=== PATIENT | female | born 1960 | race Hispanic/Latino ===

== ENCOUNTER 2017-11-27 15:03 | Emergency (ER) | payer SELFPAY ==
[~2017-11-27 15:03] MED LIST: MELO-106 PO; METF10004 PO; NPH,100V11 SQ; TRAM50TA4 PO
[2017-11-27] MEDS ORDERED: CEFTRIAXONE SODIUM 2 GM VIAL ONE (15:17)
[2017-11-27] MEDS ORDERED: SODIUM CHLORIDE 0.9% 1000ML 1,000 ML IV ONE (15:17)
[2017-11-27] MEDS ORDERED: ACETAMINOPHEN EXTRA STRENGTH 500 MG TABLET ONE (15:18)
[2017-11-27 15:32] LABS: BASOPHILS % (AUTO) 0.7 % (0.0-5.0); EOSINOPHILS % (AUTO) 0.3 % (0.0-8.0); HEMATOCRIT 40.6 % (36-48); LYMPHOCYTES % (AUTO) 11.8 % (21.0-51.0); MEAN CORPUSCULAR HEMOGLOBIN 28.3 pg (27.0-33.0); MEAN CORPUSCULAR HGB CONC 32.8 g/dL (32.0-36.0); MEAN CORPUSCULAR VOLUME 86.3 fL (79-99); MONOCYTES % (AUTO) 9.3 % (3.0-13.0); NEUTROPHILS % (AUTO) 77.9 % (40.0-77.0); PLATELET COUNT (AUTO) 386 K/uL (130-400); RED BLOOD CELL COUNT(AUTO) 4.71 MIL/uL (4.00-5.50); RED CELL DISTRIBUTION WIDTH 14.7 % (11.0-15.5); WHITE BLOOD COUNT (AUTO) 13.5 K/uL (4.8-10.8)
[2017-11-27 15:48] LABS: INR 1.01 (0.85-1.15); PARTIAL THROMBOPLASTIN TIME 28.9 SEC (26.3-35.5); PROTHROMBIN TIME 10.6 SEC (9.6-11.6)
[2017-11-27 15:57] LABS: CARBON DIOXIDE 27 mmol/L (21-32); CHLORIDE 97 mmol/L (101-111); CREATININE 0.7 mg/dL (0.5-1.5); GLOMERULAR FILTR. RATE CALC 92 mL/min (>60); GLUCOSE,RANDOM 184 mg/dL (70-105); POTASSIUM 4.1 mmol/L (3.5-5.1); SODIUM SERUM 133 mmol/L (136-145); UREA NITROGEN, BLOOD 12 mg/dL (7-18)
[2017-11-27 16:23] LABS: ALANINE AMINOTRANSFERASE 24 U/L (12-78); ALBUMIN 3.5 g/dL (3.5-5.0); ASPARTATE AMINOTRANSFERASE 21 U/L (10-37); BILIRUBIN,TOTAL 0.3 mg/dL (0.2-1.0); CREATINE KINASE MB < 0.5 ng/mL (0.5-3.6); CREATINE KINASE, TOTAL 140 U/L (21-232); MYOGLOBIN 49 ng/mL (10-92); TOTAL PROTEIN, SERUM 8.6 g/dL (6.0-8.3); TROPONIN I < 0.04 ng/mL (0.00-0.06)
== END 2017-11-27 17:50 | disposition home or self-care (01) ==
LOC: EDH 15:03
DX: E86.0 Dehydration (principal); J09.X2 Influenza due to identified novel influenza A virus with other respiratory manifestations; E11.9 Type 2 diabetes mellitus without complications; E78.5 Hyperlipidemia, unspecified; I10 Essential (primary) hypertension
CPT/HCPCS: 36415; 71046; 80053; 82550; 82553; 83605; 83874; 84484; 85025; 85610; 85730; 87040 ×2; 87804 ×2; 87880; 93005; 96361; 96374; 99285; J0696; J7030

== ENCOUNTER 2017-12-20 12:17 | Inpatient (IN) | payer SELFPAY ==
[~2017-12-20] VITALS: Ht 154.9 cm; Wt 89.1 kg
[2017-12-20] MEDS ORDERED: ACETAMINOPHEN ELIXIR 650 MG/20.3 ML UDCUP ONE (13:25)
[2017-12-20 14:03] LABS: RAPID GROUP A STREP NEGATIVE (NEGATIVE)
[2017-12-20] MEDS ORDERED: LEVOFLOXACIN 750 MG/D5W 150 ML 150 ML ONE (14:38)
[2017-12-20] MEDS ORDERED: SODIUM CHLORIDE 0.9% 1000ML 1,000 ML IV ONE (14:38)
[2017-12-20 15:00] LABS: HEMATOCRIT 37.9 % (36-48); MEAN CORPUSCULAR HEMOGLOBIN 28.9 pg (27.0-33.0); MEAN CORPUSCULAR HGB CONC 33.9 g/dL (32.0-36.0); MEAN CORPUSCULAR VOLUME 85.4 fL (79-99); PLATELET COUNT (AUTO) 380 K/uL (130-400); RED BLOOD CELL COUNT(AUTO) 4.44 MIL/uL (4.00-5.50); RED CELL DISTRIBUTION WIDTH 14.7 % (11.0-15.5)
[2017-12-20 15:08] LABS: WHITE BLOOD COUNT (AUTO) 31.1 K/uL (4.8-10.8)
[2017-12-20 15:22] LABS: CREATININE 1.2 mg/dL (0.5-1.5); POTASSIUM 3.4 mmol/L (3.5-5.1)
[2017-12-20 15:26] LABS: ALBUMIN 3.3 g/dL (3.5-5.0); BILIRUBIN,TOTAL 0.4 mg/dL (0.2-1.0); TOTAL PROTEIN, SERUM 7.7 g/dL (6.0-8.3)
[2017-12-20 15:43] LABS: BAND NEUTROPHILS % (MANUAL) 20 % (0-2); LYMPHOCYTES % (MANUAL) 5 % (22-44); MAN.DIFF COMMENT-IMPRESSION MANUAL DIFFERENTIAL; MONOCYTES % (MANUAL) 3 % (2-9); SEGMENTED NEUTROPHILS % 72 % (40-70)
[2017-12-20] MEDS ORDERED: SODIUM CHLORIDE 0.9% 1000ML 2,000 ML IV ONE (16:46)
[2017-12-20] MEDS ORDERED: MEROPENEM 1 GM VIAL ONE (17:08)
[2017-12-20] MEDS ORDERED: LACTULOSE 20 GM/30 ML UDCUP PO PRN (18:00)
[2017-12-20] MEDS: AZITHROMYCIN 500MG+NS 250ML 250 ML IV SCH (18:00)
[2017-12-20] MEDS ORDERED: ACETAMINOPHEN 325 MG TAB PO PRN (18:00)
[2017-12-20] MEDS ORDERED: GUAIFENESIN-DM 200/20 MG 10 ML PO PRN (18:00)
[2017-12-20] MEDS ORDERED: ZOLPIDEM TARTRATE 5 MG TAB PO PRN (18:00)
[2017-12-20] MEDS ORDERED: CEFTRIAXONE 1GM/D5W 50ML 50 ML IV SCH (18:00)
[2017-12-20] MEDS ORDERED: CEFTRIAXONE SODIUM 1 GM IVP SCH (18:15)
[2017-12-20] MEDS ORDERED: AZITHROMYCIN 500MG+NS 250ML 250 ML IV ONE (19:36)
[2017-12-20] MEDS ORDERED: CEFTRIAXONE SODIUM 1 GM ONE (19:36)
[2017-12-20 19:46] LABS: APPEARANCE,URINE SL CLOUDY (CLEAR); BILIRUBIN,URINE NEGATIVE (NEGATIVE); COLOR,URINE YELLOW (YELLOW); GLUCOSE, URINE (UA) NEGATIVE (NEGATIVE); KETONES,URINE NEGATIVE (NEGATIVE); LEUKOCYTE ESTERASE ,URINE LARGE (NEGATIVE); NITRATE,URINE NEGATIVE (NEGATIVE); OCCULT BLOOD,URINE MODERATE (NEGATIVE); PH,URINE 7.5 (5.0-8.0); PROTEIN,URINE NEGATIVE (NEGATIVE); UROBILINOGEN,URINE 0.2 mg/dL (0.2-1.0)
[2017-12-20] MEDS ORDERED: ACETAMINOPHEN-CODEINE 300/30MG TAB ONE (19:54)
[2017-12-20 20:05] LABS: WBC,URINE 26-50 /HPF (0-1)
[2017-12-20 20:09] LABS: BACTERIA,URINE Rare /HPF (None Seen); SQUAMOUS EPITHELIAL CELL,UR Rare /LPF (0-2); TRANSITIONAL EPI CELLS,URINE Few /LPF (None Seen)
[2017-12-20] MEDS ORDERED: PANTOPRAZOLE SODIUM 40 MG TABLET.DR PO ONE (20:47)
[2017-12-20] MEDS ORDERED: HYDRALAZINE HCL 20 MG/ML VIAL IM PRN (23:30)
[2017-12-21] MEDS ORDERED: ACETAMINOPHEN 325 MG TAB PO PRN
[2017-12-21] MEDS ORDERED: ACETAMINOPHEN EXTRA STRENGTH 500 MG TABLET ONE ×2 (00:22→12:20)
[2017-12-21] MEDS: ENOXAPARIN SODIUM 40 MG/0.4 ML SYRINGE SQ SCH (09:00)
[2017-12-21] MEDS: PANTOPRAZOLE SODIUM 40 MG TABLET.DR PO SCH (09:00)
[2017-12-21] MEDS ORDERED: ENOXAPARIN SODIUM 40 MG/0.4 ML SYRINGE SQ ONE (09:03)
[2017-12-21] MEDS ORDERED: PANTOPRAZOLE SODIUM 40 MG TABLET.DR PO ONE (09:04)
[2017-12-21] MEDS ORDERED: SODIUM CHLORIDE 0.9% 1000ML 1,000 ML IV ONE (12:08)
[2017-12-21] MEDS ORDERED: ONDANSETRON HCL 4 MG/2 ML VIAL ONE (12:20)
[2017-12-21 12:40] VITALS: BP 128/57
[2017-12-21] MEDS: SODIUM CHLORIDE 0.9% 1000ML 1,000 ML IV SCH ×2 (13:00→18:13)
[2017-12-21 13:51] VITALS: BP 128/57
[2017-12-21 16:00] VITALS: BP 101/51
[2017-12-21] MEDS: WATER FOR INJECTION,STERILE 20 ML VIAL IJ SCH (16:00)
[2017-12-21] MEDS ORDERED: PHARMACY COMMUNICATION MISC SCH (16:15)
[2017-12-21] MEDS: CEFEPIME HCL 2 GM VIAL IVP SCH (16:54)
[2017-12-21] MEDS: AZITHROMYCIN 500MG+NS 250ML 250 ML IV SCH (18:13)
[2017-12-21 19:00] VITALS: BP 129/61
[2017-12-21] MEDS ORDERED: ATOR40TA69 PO (20:11)
[2017-12-21] MEDS ORDERED: METF850T2 PO (20:11)
[2017-12-21] MEDS ORDERED: HUMALOG SQ (20:11)
[2017-12-21] MEDS ORDERED: ASPI-1012 PO (20:11)
[2017-12-21] MEDS ORDERED: HUMALOG 70/30 SQ (20:11)
[2017-12-21] MEDS ORDERED: LISI-617 PO (20:11)
[2017-12-21] MEDS ORDERED: CHOL500051 PO (20:11)
[2017-12-21] MEDS: ACETAMINOPHEN-CODEINE 300/30MG TAB PO PRN (21:20)
[2017-12-21] MEDS: ONDANSETRON HCL 4 MG/2 ML VIAL IVP PRN (21:21)
[2017-12-22] VITALS (7 sets, daily range): BP systolic 98–118; BP diastolic 51–68
[2017-12-22] MEDS: CEFEPIME HCL 2 GM VIAL IVP SCH ×3 (00:06→16:28)
[2017-12-22] MEDS: WATER FOR INJECTION,STERILE 20 ML VIAL IJ SCH ×3 (08:00→16:28)
[2017-12-22] MEDS: PANTOPRAZOLE SODIUM 40 MG TABLET.DR PO SCH (10:13)
[2017-12-22] MEDS ORDERED: CHOLECALCIFEROL 5000 UNIT PO SCH (10:41)
[2017-12-22 11:46] LABS: BASOPHILS % (AUTO) 0.8 % (0.0-5.0); EOSINOPHILS % (AUTO) 1.6 % (0.0-8.0); HEMATOCRIT 34.5 % (36-48); LYMPHOCYTES % (AUTO) 25.5 % (21.0-51.0); MEAN CORPUSCULAR HEMOGLOBIN 28.8 pg (27.0-33.0); MEAN CORPUSCULAR HGB CONC 33.4 g/dL (32.0-36.0); MEAN CORPUSCULAR VOLUME 86.4 fL (79-99); MONOCYTES % (AUTO) 9.2 % (3.0-13.0); NEUTROPHILS % (AUTO) 62.9 % (40.0-77.0); PLATELET COUNT (AUTO) 354 K/uL (130-400); RED BLOOD CELL COUNT(AUTO) 3.99 MIL/uL (4.00-5.50); RED CELL DISTRIBUTION WIDTH 15.1 % (11.0-15.5); WHITE BLOOD COUNT (AUTO) 15.3 K/uL (4.8-10.8)
[2017-12-22 11:59] LABS: CREATININE 0.8 mg/dL (0.5-1.5); POTASSIUM 3.6 mmol/L (3.5-5.1)
[2017-12-22] MEDS: TAMSULOSIN HCL 0.4 MG CAP.ER.24H PO SCH (12:56)
[2017-12-22] MEDS: METFORMIN HCL 850 MG TABLET PO SCH ×2 (12:56→16:29)
[2017-12-22] MEDS: ACETAMINOPHEN-CODEINE 300/30MG TAB PO PRN (12:57)
[2017-12-22] MEDS: SODIUM CHLORIDE 0.9% 1000ML 1,000 ML IV SCH (12:58)
[2017-12-22] MEDS: ENOXAPARIN SODIUM 40 MG/0.4 ML SYRINGE SQ SCH (13:00)
[2017-12-22] MEDS: AZITHROMYCIN 500MG+NS 250ML 250 ML IV SCH (16:29)
[2017-12-22] MEDS: MORPHINE SULFATE 2 MG/ML 1ML SYG IV PRN (16:44)
[2017-12-22] MEDS: INSULIN LISPRO 100 UNIT/ML 3ML SQ SCH (18:00)
[2017-12-23] MEDS: CEFEPIME HCL 2 GM VIAL IVP SCH ×3 (00:36→19:08)
[2017-12-23] MEDS: WATER FOR INJECTION,STERILE 20 ML VIAL IJ SCH ×2 (00:36→09:16)
[2017-12-23] MEDS: MORPHINE SULFATE 2 MG/ML 1ML SYG IV PRN ×2 (01:44→21:34)
[2017-12-23] MEDS: ONDANSETRON HCL 4 MG/2 ML VIAL IVP PRN (01:47)
[2017-12-23 03:20] VITALS: BP 128/72
[2017-12-23] MEDS: SODIUM CHLORIDE 0.9% 1000ML 1,000 ML IV SCH ×2 (05:43→19:07)
[2017-12-23] MEDS: INSULIN HUMULIN 70/30 100 UNIT/ML 3ML SQ SCH (06:58)
[2017-12-23 08:55] VITALS: BP 130/72
[2017-12-23] MEDS: LISINOPRIL 5 MG TABLET PO SCH (09:14)
[2017-12-23] MEDS: METFORMIN HCL 850 MG TABLET PO SCH ×4 (09:14→19:09)
[2017-12-23] MEDS: ATORVASTATIN CALCIUM 40 MG TABLET PO SCH (09:14)
[2017-12-23] MEDS: ASPIRIN 325 MG TABLET PO SCH (09:14)
[2017-12-23] MEDS: PANTOPRAZOLE SODIUM 40 MG TABLET.DR PO SCH (09:15)
[2017-12-23] MEDS: TAMSULOSIN HCL 0.4 MG CAP.ER.24H PO SCH (09:15)
[2017-12-23] MEDS: ENOXAPARIN SODIUM 40 MG/0.4 ML SYRINGE SQ SCH (09:16)
[2017-12-23 12:02] VITALS: BP 121/69
[2017-12-23 15:43] VITALS: BP 96/53
[2017-12-23] MEDS: INSULIN LISPRO 100 UNIT/ML 3ML SQ SCH ×2 (18:00→19:12)
[2017-12-23 19:00] VITALS: BP 122/65
[2017-12-23 23:49] VITALS: BP 115/56
[2017-12-24] MEDS: CEFEPIME HCL 2 GM VIAL IVP SCH ×3 (00:43→18:14)
[2017-12-24] MEDS: MORPHINE SULFATE 2 MG/ML 1ML SYG IV PRN (01:43)
[2017-12-24 03:30] VITALS: BP 124/59
[2017-12-24] MEDS: SODIUM CHLORIDE 0.9% 1000ML 1,000 ML IV SCH ×2 (05:37→21:00)
[2017-12-24 05:53] LABS: HEMATOCRIT 32.4 % (36-48); LYMPHOCYTES % (AUTO) 31.8 % (21.0-51.0); MEAN CORPUSCULAR HEMOGLOBIN 28.7 pg (27.0-33.0); MEAN CORPUSCULAR HGB CONC 33.8 g/dL (32.0-36.0); MONOCYTES % (AUTO) 12.4 % (3.0-13.0); NEUTROPHILS % (AUTO) 52.8 % (40.0-77.0); NUCLEATED RED BLOOD CELLS 0.1 % (0.0-0.19); PLATELET COUNT (AUTO) 376 K/uL (130-400); RED BLOOD CELL COUNT(AUTO) 3.81 MIL/uL (4.00-5.50); RED CELL DISTRIBUTION WIDTH 14.5 % (11.0-15.5); WHITE BLOOD COUNT (AUTO) 12.7 K/uL (4.8-10.8)
[2017-12-24 05:58] LABS: CREATININE 0.6 mg/dL (0.5-1.5); POTASSIUM 3.5 mmol/L (3.5-5.1)
[2017-12-24] MEDS: INSULIN HUMULIN 70/30 100 UNIT/ML 3ML SQ SCH (07:09)
[2017-12-24 07:28] VITALS: BP 128/71
[2017-12-24] MEDS: WATER FOR INJECTION,STERILE 20 ML VIAL IJ SCH ×3 (08:00→16:00)
[2017-12-24] MEDS: METFORMIN HCL 850 MG TABLET PO SCH ×3 (09:01→16:38)
[2017-12-24] MEDS: ASPIRIN 325 MG TABLET PO SCH (09:02)
[2017-12-24] MEDS: TAMSULOSIN HCL 0.4 MG CAP.ER.24H PO SCH (09:02)
[2017-12-24] MEDS: LISINOPRIL 5 MG TABLET PO SCH (09:02)
[2017-12-24] MEDS: PANTOPRAZOLE SODIUM 40 MG TABLET.DR PO SCH (09:02)
[2017-12-24] MEDS: ATORVASTATIN CALCIUM 40 MG TABLET PO SCH (09:02)
[2017-12-24] MEDS: ENOXAPARIN SODIUM 40 MG/0.4 ML SYRINGE SQ SCH (09:02)
[2017-12-24 11:20] VITALS: BP 114/70
[2017-12-24 16:10] VITALS: BP 119/67
[2017-12-24] MEDS: INSULIN LISPRO 100 UNIT/ML 3ML SQ SCH (16:38)
[2017-12-24 19:00] VITALS: BP 129/68
[2017-12-24] MEDS: ACETAMINOPHEN-CODEINE 300/30MG TAB PO PRN (20:53)
[2017-12-24 23:00] VITALS: BP 105/56
[2017-12-25] MEDS: CEFEPIME HCL 2 GM VIAL IVP SCH ×3 (00:45→18:37)
[2017-12-25 03:00] VITALS: BP 128/74
[2017-12-25] MEDS: INSULIN HUMULIN 70/30 100 UNIT/ML 3ML SQ SCH (07:30)
[2017-12-25 08:00] VITALS: BP 145/70
[2017-12-25] MEDS: WATER FOR INJECTION,STERILE 20 ML VIAL IJ SCH ×3 (08:00→16:00)
[2017-12-25] MEDS: METFORMIN HCL 850 MG TABLET PO SCH ×3 (08:00→18:36)
[2017-12-25] MEDS: ATORVASTATIN CALCIUM 40 MG TABLET PO SCH (09:51)
[2017-12-25] MEDS: PANTOPRAZOLE SODIUM 40 MG TABLET.DR PO SCH (09:51)
[2017-12-25] MEDS: ASPIRIN 325 MG TABLET PO SCH (09:51)
[2017-12-25] MEDS: LISINOPRIL 5 MG TABLET PO SCH (09:51)
[2017-12-25] MEDS: TAMSULOSIN HCL 0.4 MG CAP.ER.24H PO SCH (09:52)
[2017-12-25] MEDS: ENOXAPARIN SODIUM 40 MG/0.4 ML SYRINGE SQ SCH (09:53)
[2017-12-25 11:00] VITALS: BP 126/55
[2017-12-25 16:00] VITALS: BP 125/44
[2017-12-25] MEDS: INSULIN LISPRO 100 UNIT/ML 3ML SQ SCH (18:00)
[2017-12-25 19:20] VITALS: BP 123/52
[2017-12-25] MEDS: ACETAMINOPHEN-CODEINE 300/30MG TAB PO PRN (20:09)
[2017-12-25 23:20] VITALS: BP 121/53
[2017-12-26] MEDS ORDERED: CEFEPIME HCL 1 GM VIAL ONE (00:13)
[2017-12-26] MEDS ORDERED: WATER FOR INJECTION,STERILE 20 ML VIAL ONE (00:13)
[2017-12-26] MEDS: WATER FOR INJECTION,STERILE 20 ML VIAL IJ SCH ×3 (00:25→17:29)
[2017-12-26 03:20] VITALS: BP 102/62
[2017-12-26] MEDS: ACETAMINOPHEN-CODEINE 300/30MG TAB PO PRN ×2 (03:59→11:22)
[2017-12-26 04:00] LABS: HEMATOCRIT 33.1 % (36-48); MEAN CORPUSCULAR HEMOGLOBIN 28.8 pg (27.0-33.0); MEAN CORPUSCULAR HGB CONC 33.9 g/dL (32.0-36.0); PLATELET COUNT (AUTO) 425 K/uL (130-400); RED BLOOD CELL COUNT(AUTO) 3.89 MIL/uL (4.00-5.50); RED CELL DISTRIBUTION WIDTH 14.5 % (11.0-15.5); WHITE BLOOD COUNT (AUTO) 14.3 K/uL (4.8-10.8)
[2017-12-26 04:10] LABS: ALBUMIN 2.8 g/dL (3.5-5.0); BILIRUBIN,TOTAL 0.3 mg/dL (0.2-1.0); CREATININE 0.7 mg/dL (0.5-1.5); MAGNESIUM 1.6 mg/dL (1.80-2.40); POTASSIUM 3.8 mmol/L (3.5-5.1); TOTAL PROTEIN, SERUM 7.5 g/dL (6.0-8.3)
[2017-12-26] MEDS: INSULIN HUMULIN 70/30 100 UNIT/ML 3ML SQ SCH (06:50)
[2017-12-26 08:00] VITALS: BP_SYST 105; BP_SYST 178; BP_DIAS 62; BP_DIAS 83
[2017-12-26 11:00] VITALS: BP 104/46
[2017-12-26] MEDS: ENOXAPARIN SODIUM 40 MG/0.4 ML SYRINGE SQ SCH (11:18)
[2017-12-26] MEDS: MAGNESIUM 2GM PREMIX 50ML 50 ML IV SCH (11:18)
[2017-12-26] MEDS: PYRAZINAMIDE 500 MG TABLET PO SCH (11:19)
[2017-12-26] MEDS: LISINOPRIL 5 MG TABLET PO SCH (11:19)
[2017-12-26] MEDS: CEFEPIME HCL 2 GM VIAL IVP SCH ×3 (11:19→17:29)
[2017-12-26] MEDS: ETHAMBUTOL HCL 400 MG TABLET PO SCH (11:20)
[2017-12-26] MEDS: PANTOPRAZOLE SODIUM 40 MG TABLET.DR PO SCH (11:20)
[2017-12-26] MEDS: METFORMIN HCL 850 MG TABLET PO SCH ×3 (11:20→16:18)
[2017-12-26] MEDS: RIFAMPIN 300 MG CAPSULE PO SCH (11:20)
[2017-12-26] MEDS: ISONIAZID 300 MG TAB PO SCH (11:21)
[2017-12-26] MEDS: PYRIDOXINE HCL 50 MG TABLET PO SCH (11:21)
[2017-12-26] MEDS: ASPIRIN 325 MG TABLET PO SCH (11:21)
[2017-12-26] MEDS: TAMSULOSIN HCL 0.4 MG CAP.ER.24H PO SCH (11:22)
[2017-12-26] MEDS: ATORVASTATIN CALCIUM 40 MG TABLET PO SCH (11:22)
[2017-12-26] MEDS: ONDANSETRON HCL 4 MG/2 ML VIAL IVP PRN (13:11)
[2017-12-26 16:00] VITALS: BP 100/59
[2017-12-26] MEDS: INSULIN LISPRO 100 UNIT/ML 3ML SQ SCH (16:18)
[2017-12-26 19:55] VITALS: BP 108/61
[2017-12-26 23:44] VITALS: BP 106/61
[2017-12-27] MEDS: CEFEPIME HCL 2 GM VIAL IVP SCH ×4 (00:59→23:55)
[2017-12-27] MEDS: ACETAMINOPHEN-CODEINE 300/30MG TAB PO PRN (01:26)
[2017-12-27 04:00] VITALS: BP 101/57
[2017-12-27 04:56] LABS: BASOPHILS % (AUTO) 0.6 % (0.0-5.0); EOSINOPHILS % (AUTO) 2.8 % (0.0-8.0); HEMATOCRIT 33.2 % (36-48); LYMPHOCYTES % (AUTO) 28.5 % (21.0-51.0); MEAN CORPUSCULAR HEMOGLOBIN 29.7 pg (27.0-33.0); MEAN CORPUSCULAR HGB CONC 34.8 g/dL (32.0-36.0); MEAN CORPUSCULAR VOLUME 85.4 fL (79-99); MONOCYTES % (AUTO) 8.2 % (3.0-13.0); NEUTROPHILS % (AUTO) 59.9 % (40.0-77.0); NUCLEATED RED BLOOD CELLS 0.1 % (0.0-0.19); PLATELET COUNT (AUTO) 445 K/uL (130-400); RED BLOOD CELL COUNT(AUTO) 3.89 MIL/uL (4.00-5.50); RED CELL DISTRIBUTION WIDTH 14.4 % (11.0-15.5); WHITE BLOOD COUNT (AUTO) 14.8 K/uL (4.8-10.8)
[2017-12-27 05:16] LABS: CREATININE 0.7 mg/dL (0.5-1.5); POTASSIUM 4.1 mmol/L (3.5-5.1)
[2017-12-27] MEDS: INSULIN HUMULIN 70/30 100 UNIT/ML 3ML SQ SCH (06:42)
[2017-12-27 08:00] VITALS: BP 98/67
[2017-12-27] MEDS: METFORMIN HCL 850 MG TABLET PO SCH ×3 (08:00→15:40)
[2017-12-27] MEDS: LISINOPRIL 5 MG TABLET PO SCH (09:00)
[2017-12-27] MEDS: MAGNESIUM 2GM PREMIX 50ML 50 ML IV SCH (10:15)
[2017-12-27] MEDS: PYRIDOXINE HCL 50 MG TABLET PO SCH (10:49)
[2017-12-27] MEDS: ISONIAZID 300 MG TAB PO SCH (10:49)
[2017-12-27] MEDS: RIFAMPIN 300 MG CAPSULE PO SCH (10:49)
[2017-12-27] MEDS: ATORVASTATIN CALCIUM 40 MG TABLET PO SCH (10:49)
[2017-12-27] MEDS: PANTOPRAZOLE SODIUM 40 MG TABLET.DR PO SCH (10:49)
[2017-12-27] MEDS: ETHAMBUTOL HCL 400 MG TABLET PO SCH (10:49)
[2017-12-27] MEDS: TAMSULOSIN HCL 0.4 MG CAP.ER.24H PO SCH (10:49)
[2017-12-27] MEDS: ENOXAPARIN SODIUM 40 MG/0.4 ML SYRINGE SQ SCH (10:49)
[2017-12-27] MEDS: PYRAZINAMIDE 500 MG TABLET PO SCH (10:50)
[2017-12-27] MEDS: ASPIRIN 325 MG TABLET PO SCH (10:50)
[2017-12-27] MEDS: WATER FOR INJECTION,STERILE 20 ML VIAL IJ SCH ×3 (10:59→16:01)
[2017-12-27 12:04] VITALS: BP 101/68
[2017-12-27] MEDS: INSULIN LISPRO 100 UNIT/ML 3ML SQ SCH (15:40)
[2017-12-27 15:47] VITALS: BP 122/61
[2017-12-27 19:44] VITALS: BP 116/63
[2017-12-27 23:29] VITALS: BP 126/68
[2017-12-28 04:00] VITALS: BP 129/70
[2017-12-28] MEDS: INSULIN HUMULIN 70/30 100 UNIT/ML 3ML SQ SCH (06:38)
[2017-12-28 07:37] VITALS: BP 111/61
[2017-12-28] MEDS: METFORMIN HCL 850 MG TABLET PO SCH ×3 (08:00→16:41)
[2017-12-28] MEDS: MAGNESIUM 2GM PREMIX 50ML 50 ML IV SCH (10:15)
[2017-12-28] MEDS: CEFEPIME HCL 2 GM VIAL IVP SCH ×2 (10:21→16:47)
[2017-12-28] MEDS: WATER FOR INJECTION,STERILE 20 ML VIAL IJ SCH ×2 (10:22→16:47)
[2017-12-28] MEDS: ISONIAZID 300 MG TAB PO SCH (10:22)
[2017-12-28] MEDS: ETHAMBUTOL HCL 400 MG TABLET PO SCH (10:22)
[2017-12-28] MEDS: PYRIDOXINE HCL 50 MG TABLET PO SCH (10:22)
[2017-12-28] MEDS: PANTOPRAZOLE SODIUM 40 MG TABLET.DR PO SCH (10:22)
[2017-12-28] MEDS: RIFAMPIN 300 MG CAPSULE PO SCH (10:22)
[2017-12-28] MEDS: TAMSULOSIN HCL 0.4 MG CAP.ER.24H PO SCH (10:22)
[2017-12-28] MEDS: ASPIRIN 325 MG TABLET PO SCH (10:22)
[2017-12-28] MEDS: ACETAMINOPHEN-CODEINE 300/30MG TAB PO PRN (10:23)
[2017-12-28] MEDS: PYRAZINAMIDE 500 MG TABLET PO SCH (10:23)
[2017-12-28] MEDS: LISINOPRIL 5 MG TABLET PO SCH (10:23)
[2017-12-28] MEDS: ATORVASTATIN CALCIUM 40 MG TABLET PO SCH (10:23)
[2017-12-28] MEDS: ENOXAPARIN SODIUM 40 MG/0.4 ML SYRINGE SQ SCH (10:24)
[2017-12-28 11:00] VITALS: BP 110/65
[2017-12-28] MEDS ORDERED: ETHA400T8 PO (13:41)
[2017-12-28] MEDS ORDERED: PYRI50TA15 PO (13:41)
[2017-12-28] MEDS ORDERED: RIFA300C2 PO (13:41)
[2017-12-28] MEDS ORDERED: PYRA500T15 PO (13:41)
[2017-12-28] MEDS ORDERED: TAMS-1 PO (13:41)
[2017-12-28] MEDS ORDERED: ISON300 PO (13:41)
[2017-12-28] MEDS: INSULIN LISPRO 100 UNIT/ML 3ML SQ SCH (16:40)
== END 2017-12-28 19:00 | disposition home or self-care (01) | DRG 871 ==
LOC: EDH 12:17 → EDHIP 12:18 → 3AH 12-21 11:37
PROVIDERS: ADMIT Family Medicine; ATTEND Family Medicine
DX: A41.9 Sepsis, unspecified organism (principal); J18.9 Pneumonia, unspecified organism; E87.2 Acidosis; E11.649 Type 2 diabetes mellitus with hypoglycemia without coma; N13.6 Pyonephrosis; A15.0 Tuberculosis of lung; R65.20 Severe sepsis without septic shock; E66.9 Obesity, unspecified; Z68.37 Body mass index [BMI] 37.0-37.9, adult; E78.5 Hyperlipidemia, unspecified; I10 Essential (primary) hypertension; Z78.9 Other specified health status; Z83.3 Family history of diabetes mellitus; Z87.442 Personal history of urinary calculi; Z90.81 Acquired absence of spleen; Z90.49 Acquired absence of other specified parts of digestive tract; Z28.21 Immunization not carried out because of patient refusal
CPT/HCPCS: 36415; 71046; 71250; 74176; 80048; 80053; 81001; 82948; 83605; 83735; 85025; 85027; 86480; 87040; 87804; 87880; 88313; 99291; A4218; J0456; J0692; J0696; J1650; J1815; J1956; J2185; J2405; J3475; J7030

== ENCOUNTER 2018-04-01 01:01 | Inpatient (IN) | payer OTHER ==
[~2018-04-01] VITALS: Ht 154.9 cm; Wt 85.0 kg
[~2018-04-01 01:01] MED LIST changes: +ASPI-1012 PO; +ATOR40TA69 PO; +CHOL500051 PO; +ETHA400T8 PO; +HUMALOG 70/30 SQ; +HUMALOG SQ; +ISON300 PO; +LISI-617 PO; -MELO-106 PO; -METF10004 PO; +METF850T2 PO; -NPH,100V11 SQ; +PYRA500T15 PO; +PYRI50TA15 PO; +RIFA300C2 PO; +TAMS-1 PO; -TRAM50TA4 PO
[2018-04-01 01:44] LABS: BASOPHILS % (AUTO) 0.5 % (0.0-5.0); EOSINOPHILS % (AUTO) 0.6 % (0.0-8.0); HEMATOCRIT 42.6 % (36-48); LYMPHOCYTES % (AUTO) 15.2 % (21.0-51.0); MEAN CORPUSCULAR HEMOGLOBIN 28.7 pg (27.0-33.0); MEAN CORPUSCULAR HGB CONC 33.9 g/dL (32.0-36.0); MEAN CORPUSCULAR VOLUME 84.7 fL (79-99); MONOCYTES % (AUTO) 5.5 % (3.0-13.0); NEUTROPHILS % (AUTO) 78.2 % (40.0-77.0); NUCLEATED RED BLOOD CELLS 0.1 % (0.0-0.19); PLATELET COUNT (AUTO) 356 K/uL (130-400); RED BLOOD CELL COUNT(AUTO) 5.03 MIL/uL (4.00-5.50); RED CELL DISTRIBUTION WIDTH 14.5 % (11.0-15.5); WHITE BLOOD COUNT (AUTO) 19.3 K/uL (4.8-10.8)
[2018-04-01 01:55] LABS: CREATININE 0.7 mg/dL (0.5-1.5); POTASSIUM 3.8 mmol/L (3.5-5.1)
[2018-04-01 01:59] LABS: ALBUMIN 4.1 g/dL (3.5-5.0); BILIRUBIN,TOTAL 0.2 mg/dL (0.2-1.0); TOTAL PROTEIN, SERUM 9.4 g/dL (6.0-8.3)
[2018-04-01] MEDS ORDERED: ONDANSETRON HCL 4 MG/2 ML VIAL ONE (03:29)
[2018-04-01] MEDS ORDERED: FENTANYL CITRATE PF 50 MCG/1 ML 2ML VIAL ONE (03:30)
[2018-04-01 03:34] LABS: APPEARANCE,URINE Turbid (CLEAR); BILIRUBIN,URINE Negative (NEGATIVE); COLOR,URINE Yellow (YELLOW); GLUCOSE, URINE (UA) TRACE mg/dL (NEGATIVE); KETONES,URINE Negative (NEGATIVE); LEUKOCYTE ESTERASE ,URINE Small (NEGATIVE); NITRATE,URINE Negative (NEGATIVE); OCCULT BLOOD,URINE Negative (NEGATIVE); PROTEIN,URINE POS 1+ (NEGATIVE); UROBILINOGEN,URINE 0.2 mg/dL (0.2-1.0)
[2018-04-01 04:18] LABS: BACTERIA,URINE Few /HPF (None Seen); RBC,URINE None Seen /HPF (0-1)
[2018-04-01 04:19] LABS: AMORPHOUS SEDIMENT,UR Moderate /LPF (None Seen); SQUAMOUS EPITHELIAL CELL,UR None Seen /HPF (0-2)
[2018-04-01 05:47] LABS: INR 0.95 (0.85-1.15); PARTIAL THROMBOPLASTIN TIME 28.5 SEC (26.3-35.5)
[2018-04-01] MEDS ORDERED: SODIUM CHLORIDE 0.9% 1000ML 1,000 ML IV ONE (07:17)
[2018-04-01] MEDS: ENOXAPARIN SODIUM 40 MG/0.4 ML SYRINGE SQ SCH (09:00)
[2018-04-01] MEDS ORDERED: ENOXAPARIN SODIUM 40 MG/0.4 ML SYRINGE SQ ONE (12:36)
[2018-04-01] MEDS: SODIUM CHLORIDE 0.9% 1000ML 1,000 ML IV SCH ×2 (14:00→21:23)
[2018-04-01 14:22] VITALS: BP 125/52
[2018-04-01] MEDS: ZOSYN 3.375GM+NS 50ML 50 ML IV SCH ×2 (15:49→21:22)
[2018-04-01 16:22] VITALS: BP 121/64
[2018-04-01 19:15] VITALS: BP 132/62
[2018-04-02 00:15] VITALS: BP 127/77
[2018-04-02 04:10] VITALS: BP 136/80
[2018-04-02 05:46] LABS: HEMATOCRIT 40.1 % (36-48); MEAN CORPUSCULAR HEMOGLOBIN 29.1 pg (27.0-33.0); MEAN CORPUSCULAR HGB CONC 33.9 g/dL (32.0-36.0); PLATELET COUNT (AUTO) 334 K/uL (130-400); RED BLOOD CELL COUNT(AUTO) 4.66 MIL/uL (4.00-5.50); RED CELL DISTRIBUTION WIDTH 14.9 % (11.0-15.5)
[2018-04-02 05:49] LABS: CREATININE 0.6 mg/dL (0.5-1.5); POTASSIUM 3.5 mmol/L (3.5-5.1)
[2018-04-02] MEDS: ZOSYN 3.375GM+NS 50ML 50 ML IV SCH ×3 (05:59→21:08)
[2018-04-02 08:10] VITALS: BP 137/73
[2018-04-02] MEDS: ENOXAPARIN SODIUM 40 MG/0.4 ML SYRINGE SQ SCH (09:26)
[2018-04-02 11:48] VITALS: BP 119/73
[2018-04-02 16:22] VITALS: BP 140/74
[2018-04-02 19:00] VITALS: BP 130/62
[2018-04-02] MEDS: SODIUM CHLORIDE 0.9% 1000ML 1,000 ML IV SCH ×2 (21:08→22:15)
[2018-04-03] VITALS: BP 128/72
[2018-04-03 03:56] LABS: BASOPHILS % (AUTO) 0.6 % (0.0-5.0); EOSINOPHILS % (AUTO) 3.6 % (0.0-8.0); HEMATOCRIT 37.9 % (36-48); LYMPHOCYTES % (AUTO) 42.8 % (21.0-51.0); MEAN CORPUSCULAR HEMOGLOBIN 28.8 pg (27.0-33.0); MEAN CORPUSCULAR HGB CONC 33.8 g/dL (32.0-36.0); PLATELET COUNT (AUTO) 339 K/uL (130-400); RED BLOOD CELL COUNT(AUTO) 4.46 MIL/uL (4.00-5.50); RED CELL DISTRIBUTION WIDTH 14.4 % (11.0-15.5); WHITE BLOOD COUNT (AUTO) 11.2 K/uL (4.8-10.8)
[2018-04-03 04:00] VITALS: BP 120/50
[2018-04-03 04:07] LABS: CREATININE 0.6 mg/dL (0.5-1.5); POTASSIUM 3.4 mmol/L (3.5-5.1)
[2018-04-03] MEDS: ZOSYN 3.375GM+NS 50ML 50 ML IV SCH (06:13)
[2018-04-03 08:18] VITALS: BP 121/78
[2018-04-03] MEDS: ENOXAPARIN SODIUM 40 MG/0.4 ML SYRINGE SQ SCH (08:31)
[2018-04-03 11:32] VITALS: BP 131/76
== END 2018-04-03 16:20 | disposition home or self-care (01) | DRG 389 ==
LOC: EDH 01:01 → EDHIP 01:02 → OBSVTOIN 01:02 → 3BH 14:03
PROVIDERS: ADMIT Internal Medicine Nephrology; ATTEND Internal Medicine Nephrology
PROC: 0D9670Z Drainage of Stomach with Drainage Device, Via Natural or Artificial Opening (ICD-10-PCS; principal; 2018-04-01)
DX: K56.600 Partial intestinal obstruction, unspecified as to cause (principal); N39.0 Urinary tract infection, site not specified; E11.9 Type 2 diabetes mellitus without complications; R76.11 Nonspecific reaction to tuberculin skin test without active tuberculosis; Z90.81 Acquired absence of spleen; Z83.3 Family history of diabetes mellitus
CPT/HCPCS: 36415; 74176; 80048; 80053; 81001; 82948; 85025; 85027; 85610; 85730; 93005; J1650; J2405; J2543; J3010; J7030

== ENCOUNTER 2020-02-22 03:29 | Inpatient (IN) | payer OTHER ==
[~2020-02-22] VITALS: Ht 157.5 cm; Wt 85.7 kg
[~2020-02-22 03:29] MED LIST changes: +METF-445 PO; -METF850T2 PO; -TAMS-1 PO
[2020-02-22] MEDS ORDERED: MORPHINE SULFATE 4 MG/1ML SYG ONE (04:06)
[2020-02-22] MEDS ORDERED: ONDANSETRON HCL 4 MG/2 ML VIAL ONE (04:06)
[2020-02-22] MEDS ORDERED: SODIUM CHLORIDE 0.9% 1000ML 1,000 ML IV ONE ×2 (04:07→05:26)
[2020-02-22 04:12] LABS: BASOPHILS % (AUTO) 0.3 % (0.0-5.0); EOSINOPHILS % (AUTO) 0.2 % (0.0-8.0); HEMATOCRIT 38.7 % (36-48); LYMPHOCYTES % (AUTO) 12.1 % (21.0-51.0); MEAN CORPUSCULAR HEMOGLOBIN 29.8 pg (27.0-33.0); MEAN CORPUSCULAR HGB CONC 35.1 g/dL (32.0-36.0); MEAN CORPUSCULAR VOLUME 84.9 fL (79-99); MONOCYTES % (AUTO) 3.2 % (3.0-13.0); NEUTROPHILS % (AUTO) 83.7 % (40.0-77.0); PLATELET COUNT (AUTO) 358 K/uL (130-400); RED BLOOD CELL COUNT(AUTO) 4.56 MIL/uL (4.00-5.50); RED CELL DISTRIBUTION WIDTH 14.7 % (11.0-15.5); WHITE BLOOD COUNT (AUTO) 18.3 K/uL (4.8-10.8)
[2020-02-22 04:27] LABS: CREATINE KINASE, TOTAL 281 U/L (21-232); LIPASE 77 U/L (114-286)
[2020-02-22] MEDS: SODIUM CHLORIDE 0.9% 1000ML 1,000 ML IV SCH (04:58)
[2020-02-22] MEDS ORDERED: ONDANSETRON HCL 4 MG/2 ML VIAL IV PRN (05:00)
[2020-02-22] MEDS ORDERED: HYDRALAZINE HCL 20 MG/ML VIAL IV PRN (05:00)
[2020-02-22] MEDS ORDERED: LACTULOSE 20 GM/30 ML UDCUP PO PRN (05:00)
[2020-02-22] MEDS ORDERED: ACETAMINOPHEN 325 MG TAB PO PRN ×2 (05:00)
[2020-02-22] MEDS ORDERED: ZOSYN 3.375GM+NS 50ML 50 ML IV ONE (05:20)
[2020-02-22] MEDS ORDERED: DEXTROSE 50%-WATER 50 ML DISP.SYRIN IV PRN (06:00)
[2020-02-22] MEDS ORDERED: GLUCAGON 1MG KIT 1 MG ML IM PRN (06:00)
[2020-02-22] MEDS: ZOSYN 3.375GM+NS 50ML 50 ML IV SCH ×3 (06:00→22:27)
[2020-02-22 07:02] LABS: BILIRUBIN,URINE NEGATIVE (NEGATIVE); COLOR,URINE YELLOW (YELLOW); GLUCOSE, URINE (UA) NEGATIVE (NEGATIVE); KETONES,URINE NEGATIVE (NEGATIVE); LEUKOCYTE ESTERASE ,URINE NEGATIVE (NEGATIVE); NITRATE,URINE NEGATIVE (NEGATIVE); OCCULT BLOOD,URINE NEGATIVE (NEGATIVE); PH,URINE 7.5 (5.0-8.0); PROTEIN,URINE 30 mg/dL (NEGATIVE); UROBILINOGEN,URINE 0.2 mg/dL (0.2-1.0)
[2020-02-22] MEDS: INSULIN HUMULIN R 100 UNIT/ML 3ML SQ SCH ×2 (07:30→21:00)
[2020-02-22 07:45] VITALS: BP 140/75
[2020-02-22 08:03] LABS: APPEARANCE,URINE SLIGHTLY CLOUDY (CLEAR)
[2020-02-22 08:43] LABS: BACTERIA,URINE Moderate /HPF (None Seen); RBC,URINE 0-1 /HPF (0-1)
[2020-02-22] MEDS: FAMOTIDINE/PF 20 MG/2 ML VIAL IV SCH ×2 (09:21→22:27)
[2020-02-22] MEDS: ENOXAPARIN SODIUM 40 MG/0.4 ML SYRINGE SQ SCH (09:23)
[2020-02-22] MEDS: MORPHINE SULFATE 2 MG/ML 1ML SYG IVP PRN (09:24)
[2020-02-22 12:00] VITALS: BP 166/83
[2020-02-22] MEDS ORDERED: HYDROMORPHONE HCL 0.5 MG/0.5 ML ML IVP PRN (12:15)
[2020-02-22] MEDS: METRONIDAZOLE 500MG/100ML BAG 100 ML IV SCH ×2 (14:00→22:27)
[2020-02-22 16:00] VITALS: BP 132/59
--- NOTE | 2020-02-22 17:45 | NUR ---
D/C PLAN CM spoke to pt regarding d/c planning. Pt is ind. and lives with spouse and son. States spouse can assist in care if needed. Reports she follows up at [facility] for outpatient medical needs. Denies having any DME. Plan to home. No needs verbalized or identified. CM to f/u. Addendum: 02/22/20 at 1747 by REMINGTON VALDEZ CM Amended: Links added.
--- NOTE | 2020-02-22 19:20 | NUR ---
PM Assessment Received pt in bed with NS at 100cc/hr infusing well, routine assessment done, plan of care discuss, reminded to remain NPO till further orders. Per pt stated last BM was 02/21/2020 with (+) gas. Pt currently denies discomfort.
[2020-02-22] MEDS ORDERED: SITA100T12 PO (19:26)
[2020-02-22] MEDS ORDERED: ASPI-1026 PO (19:26)
[2020-02-22] MEDS ORDERED: METF-445 PO (19:26)
[2020-02-22] MEDS ORDERED: LISI10TA7 PO (19:26)
[2020-02-22] MEDS ORDERED: ROSU40TA21 PO (19:26)
[2020-02-22] MEDS ORDERED: NAPR-1023 PO (19:26)
[2020-02-22] MEDS ORDERED: PIOG45TA64 PO (19:26)
[2020-02-22] MEDS ORDERED: ERGO2000 PO (19:26)
[2020-02-22 19:50] VITALS: BP 100/64
[2020-02-23] VITALS (7 sets, daily range): BP systolic 99–114; BP diastolic 51–72
[2020-02-23] MEDS: SODIUM CHLORIDE 0.9% 1000ML 1,000 ML IV SCH ×3 (01:39→20:16)
[2020-02-23] MEDS: METRONIDAZOLE 500MG/100ML BAG 100 ML IV SCH ×3 (05:11→21:42)
[2020-02-23] MEDS: ZOSYN 3.375GM+NS 50ML 50 ML IV SCH ×3 (05:11→21:47)
[2020-02-23 05:23] LABS: BASOPHILS % (AUTO) 0.3 % (0.0-5.0); LYMPHOCYTES % (AUTO) 24.4 % (21.0-51.0); MEAN CORPUSCULAR HEMOGLOBIN 29.2 pg (27.0-33.0); MEAN CORPUSCULAR HGB CONC 33.2 g/dL (32.0-36.0); MEAN CORPUSCULAR VOLUME 87.9 fL (79-99); MONOCYTES % (AUTO) 10.7 % (3.0-13.0); NEUTROPHILS % (AUTO) 63.4 % (40.0-77.0); PLATELET COUNT (AUTO) 307 K/uL (130-400); RED BLOOD CELL COUNT(AUTO) 3.87 MIL/uL (4.00-5.50); RED CELL DISTRIBUTION WIDTH 15.8 % (11.0-15.5); WHITE BLOOD COUNT (AUTO) 12.4 K/uL (4.8-10.8)
[2020-02-23] MEDS: MORPHINE SULFATE 2 MG/ML 1ML SYG IVP PRN (05:26)
[2020-02-23 05:46] LABS: CREATININE 0.7 mg/dL (0.5-1.5); POTASSIUM 3.5 mmol/L (3.5-5.1)
[2020-02-23] MEDS: INSULIN HUMULIN R 100 UNIT/ML 3ML SQ SCH ×4 (06:08→20:22)
[2020-02-23] MEDS: FAMOTIDINE/PF 20 MG/2 ML VIAL IV SCH ×2 (08:24→20:16)
[2020-02-23] MEDS: ENOXAPARIN SODIUM 40 MG/0.4 ML SYRINGE SQ SCH (08:24)
[2020-02-24 04:00] VITALS: BP 106/73
[2020-02-24 05:34] LABS: BASOPHILS % (AUTO) 0.6 % (0.0-5.0); EOSINOPHILS % (AUTO) 3.7 % (0.0-8.0); HEMATOCRIT 33.6 % (36-48); LYMPHOCYTES % (AUTO) 42.3 % (21.0-51.0); MEAN CORPUSCULAR HEMOGLOBIN 29.1 pg (27.0-33.0); MEAN CORPUSCULAR VOLUME 88.2 fL (79-99); MONOCYTES % (AUTO) 9.9 % (3.0-13.0); NEUTROPHILS % (AUTO) 43.3 % (40.0-77.0); PLATELET COUNT (AUTO) 316 K/uL (130-400); RED BLOOD CELL COUNT(AUTO) 3.81 MIL/uL (4.00-5.50); RED CELL DISTRIBUTION WIDTH 15.7 % (11.0-15.5); WHITE BLOOD COUNT (AUTO) 8.6 K/uL (4.8-10.8)
[2020-02-24] MEDS: ZOSYN 3.375GM+NS 50ML 50 ML IV SCH (05:42)
[2020-02-24] MEDS: METRONIDAZOLE 500MG/100ML BAG 100 ML IV SCH (05:42)
[2020-02-24 05:50] LABS: MAGNESIUM 1.9 mg/dL (1.80-2.40)
[2020-02-24 05:57] LABS: CREATININE 0.6 mg/dL (0.5-1.5)
[2020-02-24] MEDS: INSULIN HUMULIN R 100 UNIT/ML 3ML SQ SCH ×2 (06:00→11:25)
[2020-02-24 06:12] LABS: POTASSIUM 3.5 mmol/L (3.5-5.1)
[2020-02-24] MEDS: SODIUM CHLORIDE 0.9% 1000ML 1,000 ML IV SCH (06:58)
[2020-02-24 07:54] VITALS: BP 109/65
[2020-02-24] MEDS: FAMOTIDINE/PF 20 MG/2 ML VIAL IV SCH (09:20)
[2020-02-24] MEDS: ENOXAPARIN SODIUM 40 MG/0.4 ML SYRINGE SQ SCH (09:20)
[2020-02-24 10:50] VITALS: BP 103/67
--- NOTE | 2020-02-24 16:27 | NUR ---
DISCHARGE PATIENT GIVEN DISCHARGE INSTRUCTIONS AND EDUCATION ON FOLLOW UP APPOINTMENTS. PATIENT VERBALIZED UNDERSTANDING OF ALL EDUCATION GIVEN VIA TEACH BACK.NO DISTRESS NOTED UPON DISCHARGE. ALL BELONGINGS TAKEN WITH.
== END 2020-02-24 16:10 | disposition home or self-care (01) | DRG 395 ==
LOC: EDH 03:29 → EDHIP 03:30 → 3DH 07:45
PROVIDERS: ADMIT Internal Medicine; ATTEND Internal Medicine
PROC: 0D9670Z Drainage of Stomach with Drainage Device, Via Natural or Artificial Opening (ICD-10-PCS; principal; 2020-02-22)
DX: K43.6 Other and unspecified ventral hernia with obstruction, without gangrene (principal); I10 Essential (primary) hypertension; E11.9 Type 2 diabetes mellitus without complications; D72.829 Elevated white blood cell count, unspecified; E78.5 Hyperlipidemia, unspecified; E66.9 Obesity, unspecified; E78.00 Pure hypercholesterolemia, unspecified; Z68.34 Body mass index [BMI] 34.0-34.9, adult; Z82.49 Family history of ischemic heart disease and other diseases of the circulatory system; Z83.3 Family history of diabetes mellitus; Z90.81 Acquired absence of spleen
CPT/HCPCS: 36415; 74021; 74176; 80048; 81001; 82550; 82948; 83690; 83735; 84484; 85025; 87088; 93005; G0378; J1170; J1650; J2270; J2405; J2543; J3490; J7030

== ENCOUNTER 2020-10-01 14:36 | Inpatient (IN) | payer OTHER ==
[~2020-10-01] VITALS: Ht 149.9 cm; Wt 89.5 kg
[~2020-10-01 14:36] MED LIST changes: -ASPI-1012 PO; +ASPI-1026 PO; -ATOR40TA69 PO; -CHOL500051 PO; +ERGO2000 PO; -ETHA400T8 PO; -HUMALOG 70/30 SQ; -HUMALOG SQ; -ISON300 PO; -LISI-617 PO; +LISI10TA7 PO; +NAPR-1023 PO; +PIOG45TA64 PO; -PYRA500T15 PO; -PYRI50TA15 PO; -RIFA300C2 PO; +ROSU40TA21 PO; +SITA100T12 PO
[2020-10-01] MEDS ORDERED: ONDANSETRON HCL 4 MG/2 ML VIAL ONE (14:50)
[2020-10-01] MEDS ORDERED: SODIUM CHLORIDE 0.9% 1000ML 1,000 ML IV ONE (14:50)
[2020-10-01] MEDS ORDERED: MORPHINE SULFATE 4 MG/1ML SYG ONE (14:51)
[2020-10-01 15:25] LABS: BASOPHILS % (AUTO) 0.4 % (0.0-5.0); EOSINOPHILS % (AUTO) 1.1 % (0.0-8.0); HEMATOCRIT 39.3 % (36-48); LYMPHOCYTES % (AUTO) 16.9 % (21.0-51.0); MEAN CORPUSCULAR HEMOGLOBIN 29.7 pg (27.0-33.0); MEAN CORPUSCULAR HGB CONC 33.3 g/dL (32.0-36.0); MEAN CORPUSCULAR VOLUME 89.1 fL (79-99); MONOCYTES % (AUTO) 6.1 % (3.0-13.0); NEUTROPHILS % (AUTO) 75.1 % (40.0-77.0); PLATELET COUNT (AUTO) 407 K/uL (130-400); RED BLOOD CELL COUNT(AUTO) 4.41 MIL/uL (4.00-5.50); RED CELL DISTRIBUTION WIDTH 15.5 % (11.0-15.5)
[2020-10-01 15:41] LABS: APPEARANCE,URINE Cloudy (CLEAR); BILIRUBIN,URINE Negative (NEGATIVE); COLOR,URINE Yellow (YELLOW); GLUCOSE, URINE (UA) Negative (NEGATIVE); KETONES,URINE Negative (NEGATIVE); LEUKOCYTE ESTERASE ,URINE Small (NEGATIVE); NITRATE,URINE Negative (NEGATIVE); OCCULT BLOOD,URINE Negative (NEGATIVE); PROTEIN,URINE Negative (NEGATIVE); UROBILINOGEN,URINE 0.2 mg/dL (0.2-1.0)
[2020-10-01 15:41] LABS: ALBUMIN 4.1 g/dL (3.5-5.0); BILIRUBIN,TOTAL 0.3 mg/dL (0.2-1.0); CREATININE 0.6 mg/dL (0.5-1.5); POTASSIUM 3.6 mmol/L (3.5-5.1); TOTAL PROTEIN, SERUM 8.8 g/dL (6.0-8.3)
[2020-10-01] MEDS ORDERED: IOHEXOL-350 75 ML VIAL IV ONE (15:49)
[2020-10-01 15:51] LABS: BACTERIA,URINE Rare /HPF (None Seen); MUCUS,URINE Few LPF (None Seen); RBC,URINE 0-1 /HPF (0-1); SQUAMOUS EPITHELIAL CELL,UR Few /HPF (0-2)
[2020-10-01] MEDS ORDERED: POTASSIUM CHLORIDE 20 MEQ in DEXTROSE 5 %-0.45 % NACL 1,000 ML IV SCH (17:15)
[2020-10-01] MEDS ORDERED: MORPHINE SULFATE 2 MG/ML 1ML SYG ONE (20:06)
[2020-10-01 21:45] VITALS: BP 117/69
[2020-10-01] MEDS ORDERED: ENALAPRILAT DIHYDRATE 1.25MG/ML 1ML VIAL IV PRN (23:15)
[2020-10-01] MEDS: SODIUM CHLORIDE 0.9% 1000ML 1,000 ML IV SCH (23:30)
--- NOTE | 2020-10-01 23:30 | NUR ---
ADMIT RECEIVED PATIENT FROM ER WITH RIGHT NG TUBE, D5 1/2 NS + 20MeQ POTASSIUM RUNNING THROUGH RIGHT ARM. PATIENT ALERT AND ORIENTED, ADMISSION ASSESSMENT AND EDUCATION REVIEWED WITH PATIENT. PATIENT VERBALIZED UNDERSTATING, NO QUESTIONS AT THIS TIME
[2020-10-01] MEDS ORDERED: PANTOPRAZOLE 40 MG/VIAL ONE (23:39)
[2020-10-01] MEDS: PANTOPRAZOLE 40 MG/VIAL IVP SCH (23:47)
--- NOTE | 2020-10-02 02:00 | NUR ---
ROUNDS PT RESTING WELL, NO DISTRESS NOTED. KEPT NPO. WILL CONTINUE TO MONITOR. CALL LIGHT WITHIN REACH.
[2020-10-02 03:35] VITALS: BP 124/64
[2020-10-02 04:15] LABS: BASOPHILS % (AUTO) 0.4 % (0.0-5.0); EOSINOPHILS % (AUTO) 2.1 % (0.0-8.0); HEMATOCRIT 35.9 % (36-48); LYMPHOCYTES % (AUTO) 28.6 % (21.0-51.0); MEAN CORPUSCULAR HEMOGLOBIN 29.5 pg (27.0-33.0); MEAN CORPUSCULAR HGB CONC 33.1 g/dL (32.0-36.0); MEAN CORPUSCULAR VOLUME 89.1 fL (79-99); MONOCYTES % (AUTO) 8.2 % (3.0-13.0); NEUTROPHILS % (AUTO) 60.4 % (40.0-77.0); PLATELET COUNT (AUTO) 373 K/uL (130-400); RED BLOOD CELL COUNT(AUTO) 4.03 MIL/uL (4.00-5.50); RED CELL DISTRIBUTION WIDTH 15.2 % (11.0-15.5); WHITE BLOOD COUNT (AUTO) 9.9 K/uL (4.8-10.8)
[2020-10-02 04:31] LABS: ALBUMIN 3.3 g/dL (3.5-5.0); BILIRUBIN,TOTAL 0.4 mg/dL (0.2-1.0); CREATININE 0.6 mg/dL (0.5-1.5); POTASSIUM 3.8 mmol/L (3.5-5.1); TOTAL PROTEIN, SERUM 7.5 g/dL (6.0-8.3)
--- NOTE | 2020-10-02 05:17 | NUR ---
ROUNDS PT RESTING WELL. NO CONCERNS VERBALIZED. NO N/V REPORTED NOR ANY ABDOMINAL PAINS. KEPT NGT TO LIS. FOR MORE CARE.
[2020-10-02] MEDS: INSULIN HUMULIN R 100 UNIT/ML 3ML SQ SCH ×4 (05:20→18:00)
[2020-10-02] MEDS: SODIUM CHLORIDE 0.9% 1000ML 1,000 ML IV SCH (05:32)
[2020-10-02] MEDS ORDERED: INSULIN HUMULIN R 100 UNIT/ML 3ML SQ SCH (07:30)
[2020-10-02 07:58] VITALS: BP 118/64
[2020-10-02] MEDS: MORPHINE SULFATE 2 MG/ML 1ML SYG IV PRN ×2 (08:04→17:22)
--- NOTE | 2020-10-02 09:30 | NUR ---
NURIA DUNCAN VISITED WITH PT.WILL DISCUSS FINDINGS WITH DR. BURCIAGA, VERY POSSIBLE PT. WILL BE GOING FOR SURGERY, WILL KEEP NPO. HAS NG IN PLACE VIA RT. NARE AND PLACEMENT WAS VERIFIED VIA CXR. DRAINING VERY LITTLE.
[2020-10-02 11:37] VITALS: BP 130/68
--- NOTE | 2020-10-02 11:49 | NUR ---
[facility] CM DC [employer] met with pt discussed dc plans. Pt is independent prior to admission, lives at home with spouse and son. Denies any equipments/services. Feels safe to go back home, still drives, spouse able to assist with transportation and needs as necessary. Given community services packet. DC plan to home once stable. CM to continue to follow up. Addendum: 10/02/20 at 1151 by CARO ELIZABETH LVN Amended: Links added.
--- NOTE | 2020-10-02 13:24 | NUR ---
NO ORDERS HAVE BEEN ENTERED OF NOW RE: SURGERY TODAY.
[2020-10-02 16:00] VITALS: BP 134/74
--- NOTE | 2020-10-02 17:30 | NUR ---
MEDICATED NOW FOR PAIN TO ABD. HAS HAD DISCOMFORT MOST OF DAY BUT DID NOT WANT MED THEN, WAS THINKING SHE MIGHT BE GOING TO SURGERY SOMETIME TODAY.
[2020-10-02 20:00] VITALS: BP 139/70
[2020-10-02] MEDS: PANTOPRAZOLE 40 MG/VIAL IVP SCH (23:05)
[2020-10-03] VITALS (7 sets, daily range): BP systolic 127–148; BP diastolic 55–75
[2020-10-03] MEDS: MORPHINE SULFATE 2 MG/ML 1ML SYG IV PRN ×2 (00:19→07:55)
[2020-10-03] MEDS: SODIUM CHLORIDE 0.9% 1000ML 1,000 ML IV SCH ×2 (02:24→13:10)
[2020-10-03] MEDS: INSULIN HUMULIN R 100 UNIT/ML 3ML SQ SCH ×4 (06:00→18:00)
[2020-10-03 08:32] LABS: CREATININE 0.6 mg/dL (0.5-1.5); MAGNESIUM 1.6 mg/dL (1.80-2.40); POTASSIUM 3.6 mmol/L (3.5-5.1)
[2020-10-03 08:36] LABS: BASOPHILS % (AUTO) 0.4 % (0.0-5.0); EOSINOPHILS % (AUTO) 1.6 % (0.0-8.0); HEMATOCRIT 37.1 % (36-48); LYMPHOCYTES % (AUTO) 20.1 % (21.0-51.0); MEAN CORPUSCULAR HGB CONC 33.4 g/dL (32.0-36.0); MEAN CORPUSCULAR VOLUME 89.8 fL (79-99); MONOCYTES % (AUTO) 8.5 % (3.0-13.0); NEUTROPHILS % (AUTO) 69.2 % (40.0-77.0); PLATELET COUNT (AUTO) 385 K/uL (130-400); RED BLOOD CELL COUNT(AUTO) 4.13 MIL/uL (4.00-5.50); RED CELL DISTRIBUTION WIDTH 15.6 % (11.0-15.5); WHITE BLOOD COUNT (AUTO) 12.1 K/uL (4.8-10.8)
[2020-10-03] MEDS: ZOSYN 3.375GM+NS 50ML 50 ML IV SCH ×2 (13:09→20:58)
--- NOTE | 2020-10-03 13:30 | NUR ---
DR. BURCIAGA VISITED WITH PT.NO SURGERY FOR NOW, CONTINUE WITH NG TUBE, AMBULATE.
--- NOTE | 2020-10-03 16:00 | NUR ---
AMBULATED IN HALLWAY AND DID WELL. BACK IN BED AND CONNECTED TO WALL SUCTION.FEELING BETTER.WILL CONTINUE TO MONITOR PAIN .
[2020-10-03] MEDS: KETOROLAC TROMETHAMINE 30MG/ML IV PRN (18:15)
[2020-10-03] MEDS: PANTOPRAZOLE 40 MG/VIAL IVP SCH (20:57)
[2020-10-03] MEDS: MAGNESIUM 2GM PREMIX 50ML 50 ML IV SCH (20:58)
--- NOTE | 2020-10-04 | NUR ---
patient alert and oriented times 3. placed large abdominal binder on the patient. she continues to have abdominal pain throughout the night. the ng tube is on low intermittent suction with some brown output. i took patient to the restroom for voiding and she was able to walk well without any dizziness or lightheadedness.
[2020-10-04] MEDS: KETOROLAC TROMETHAMINE 30MG/ML IV PRN ×2 (00:12→17:38)
[2020-10-04] MEDS: MORPHINE SULFATE 2 MG/ML 1ML SYG IV PRN (02:09)
[2020-10-04] MEDS: SODIUM CHLORIDE 0.9% 1000ML 1,000 ML IV SCH (02:09)
[2020-10-04 03:42] VITALS: BP 129/62
[2020-10-04] MEDS: ZOSYN 3.375GM+NS 50ML 50 ML IV SCH ×3 (04:06→19:57)
[2020-10-04] MEDS ORDERED: DEXTROSE 5%-LACTATED RINGERS 1,000 ML IV ONE (04:14)
[2020-10-04] MEDS: DEXTROSE 5%-LACTATED RINGERS 1,000 ML IV SCH ×2 (04:15→18:54)
[2020-10-04] MEDS: INSULIN HUMULIN R 100 UNIT/ML 3ML SQ SCH ×5 (05:50→23:31)
[2020-10-04 05:55] LABS: HEMATOCRIT 34.9 % (36-48); MEAN CORPUSCULAR HEMOGLOBIN 29.7 pg (27.0-33.0); MEAN CORPUSCULAR HGB CONC 33.2 g/dL (32.0-36.0); MEAN CORPUSCULAR VOLUME 89.5 fL (79-99); PLATELET COUNT (AUTO) 366 K/uL (130-400); WHITE BLOOD COUNT (AUTO) 10.8 K/uL (4.8-10.8)
[2020-10-04 06:19] LABS: ALBUMIN 3.1 g/dL (3.5-5.0); BILIRUBIN,TOTAL 0.8 mg/dL (0.2-1.0); CREATININE 0.7 mg/dL (0.5-1.5); MAGNESIUM 2.5 mg/dL (1.80-2.40); POTASSIUM 3.3 mmol/L (3.5-5.1); TOTAL PROTEIN, SERUM 7.2 g/dL (6.0-8.3)
[2020-10-04 06:44] LABS: BAND NEUTROPHILS % (MANUAL) 4 % (0-2); EOSINOPHILS % (MANUAL) 2 % (1-6); LYMPHOCYTES % (MANUAL) 33 % (22-44); MAN.DIFF COMMENT-IMPRESSION MANUAL DIFFERENTIAL; MONOCYTES % (MANUAL) 1 % (2-9); PLATELET MORPHOLOGY COMMENT ADEQUATE; REACTIVE LYMPHOCYTES 2 % (0-0); SEGMENTED NEUTROPHILS % 58 % (40-70)
--- NOTE | 2020-10-04 10:00 | NUR ---
WALKING IN HALLWAY.
[2020-10-04 10:44] VITALS: BP 118/63
[2020-10-04 12:19] VITALS: BP 149/76
--- NOTE | 2020-10-04 15:30 | NUR ---
HAD A BOWEL MOVEMENT AND IS PASSING GAS, PT. AND NURSE VERY HAPPY.
[2020-10-04 16:45] VITALS: BP 165/76
--- NOTE | 2020-10-04 17:41 | NUR ---
MEDICATED FOR ABD. PAIN NOW
--- NOTE | 2020-10-04 18:59 | NUR ---
KETAN. BOWEL FOLLOW THROUGH WITH GASTRO RODOLFO [facility] FOR AM
[2020-10-04] MEDS: LIDOCAINE HCL-MPF 1% 2ML VIAL IV PRN ×2 (19:57→22:46)
[2020-10-04] MEDS: POTASSIUM CHLORIDE 20MEQ/100ML 100 ML IV PRN ×2 (19:57→23:14)
[2020-10-04 19:59] VITALS: BP 135/62
[2020-10-04] MEDS: PANTOPRAZOLE 40 MG/VIAL IVP SCH (22:48)
--- NOTE | 2020-10-04 23:14 | NUR ---
K+PROTOCOL Hypokalemia protocol initiated for K+ 3.3
[2020-10-05 00:12] VITALS: BP 127/71
[2020-10-05] MEDS: MORPHINE SULFATE 2 MG/ML 1ML SYG IV PRN (01:32)
--- NOTE | 2020-10-05 01:38 | NUR ---
PAIN Pt medicated with Morphine for pain.
[2020-10-05] MEDS: ZOSYN 3.375GM+NS 50ML 50 ML IV SCH ×3 (03:07→20:57)
[2020-10-05 03:37] VITALS: BP 111/57
[2020-10-05] MEDS: INSULIN HUMULIN R 100 UNIT/ML 3ML SQ SCH ×3 (05:44→17:30)
[2020-10-05 05:56] LABS: BASOPHILS % (AUTO) 0.5 % (0.0-5.0); EOSINOPHILS % (AUTO) 3.1 % (0.0-8.0); HEMATOCRIT 35.9 % (36-48); LYMPHOCYTES % (AUTO) 24.1 % (21.0-51.0); MEAN CORPUSCULAR HEMOGLOBIN 30.1 pg (27.0-33.0); MEAN CORPUSCULAR HGB CONC 33.7 g/dL (32.0-36.0); MEAN CORPUSCULAR VOLUME 89.3 fL (79-99); MONOCYTES % (AUTO) 10.3 % (3.0-13.0); NEUTROPHILS % (AUTO) 61.7 % (40.0-77.0); PLATELET COUNT (AUTO) 386 K/uL (130-400); RED BLOOD CELL COUNT(AUTO) 4.02 MIL/uL (4.00-5.50); RED CELL DISTRIBUTION WIDTH 15.2 % (11.0-15.5); WHITE BLOOD COUNT (AUTO) 12.4 K/uL (4.8-10.8)
[2020-10-05] MEDS: DEXTROSE 5%-LACTATED RINGERS 1,000 ML IV SCH ×2 (06:05→20:58)
[2020-10-05 06:31] LABS: MAGNESIUM 1.9 mg/dL (1.80-2.40); POTASSIUM 3.9 mmol/L (3.5-5.1)
[2020-10-05 06:38] LABS: CREATININE 0.6 mg/dL (0.5-1.5)
[2020-10-05 07:30] VITALS: BP 153/102
[2020-10-05] MEDS ORDERED: DIATR MEGLU/DIATRIZOATE SODIUM 30 ML BOTTLE ONE (10:16)
[2020-10-05 11:00] VITALS: BP 131/75
--- NOTE | 2020-10-05 15:01 | NUR ---
NEW ORDER REMOVE NG TUBE COMPLETE. PT TOLERATED W/O COMPLAINT AND W/O COMPLICATIONS, (e.g. BLEEDING).
[2020-10-05 15:48] VITALS: BP 124/71
[2020-10-05 20:00] VITALS: BP 141/70
[2020-10-05] MEDS: MAGNESIUM 2GM PREMIX 50ML 50 ML IV SCH (20:58)
[2020-10-05] MEDS: PANTOPRAZOLE 40 MG/VIAL IVP SCH (23:02)
[2020-10-06] VITALS: BP 116/56
[2020-10-06 04:00] VITALS: BP 152/68
[2020-10-06] MEDS: ZOSYN 3.375GM+NS 50ML 50 ML IV SCH (04:47)
--- NOTE | 2020-10-06 05:09 | NUR ---
STATUS Pt slept well.Voiced no complaints of pain or discomfort.
[2020-10-06 05:19] LABS: BASOPHILS % (AUTO) 0.4 % (0.0-5.0); EOSINOPHILS % (AUTO) 3.8 % (0.0-8.0); HEMATOCRIT 34.9 % (36-48); LYMPHOCYTES % (AUTO) 29.5 % (21.0-51.0); MEAN CORPUSCULAR HEMOGLOBIN 29.7 pg (27.0-33.0); MEAN CORPUSCULAR HGB CONC 33.2 g/dL (32.0-36.0); MEAN CORPUSCULAR VOLUME 89.5 fL (79-99); MONOCYTES % (AUTO) 10.6 % (3.0-13.0); NEUTROPHILS % (AUTO) 55.5 % (40.0-77.0); PLATELET COUNT (AUTO) 390 K/uL (130-400); RED CELL DISTRIBUTION WIDTH 14.9 % (11.0-15.5); WHITE BLOOD COUNT (AUTO) 10.1 K/uL (4.8-10.8)
[2020-10-06 05:23] LABS: CREATININE 0.6 mg/dL (0.5-1.5); POTASSIUM 3.5 mmol/L (3.5-5.1)
[2020-10-06] MEDS ORDERED: POTASSIUM CHLORIDE 20 MEQ ERTAB PO PRN (05:45)
[2020-10-06] MEDS: INSULIN HUMULIN R 100 UNIT/ML 3ML SQ SCH ×3 (05:55→11:26)
[2020-10-06] MEDS: POTASSIUM CHLORIDE 10% ELIXIR 20 MEQ/15 ML UDCUP PO PRN ×2 (06:38→11:06)
[2020-10-06 08:00] VITALS: BP 130/64
[2020-10-06] MEDS: DEXTROSE 5%-LACTATED RINGERS 1,000 ML IV SCH (10:28)
[2020-10-06 11:31] VITALS: BP 125/75
--- NOTE | 2020-10-06 12:40 | NUR ---
PT IV(S) REMOVED W/O DIFFICULTY OR COMPLICATIONS. PT STATES UNDERSTANDING OF ALL DISCHARGE INSTRUCTIONS INCLUDING FOLLOW UP APPTS. AND MED LIST. DISMISSED BY W/C IN GOOD CONDITION ACCOMPANIED BY FAMILY AND STAFF
== END 2020-10-06 12:50 | disposition home or self-care (01) | DRG 390 ==
LOC: EDH 14:36 → EDHIP 14:37 → 3CH 19:58
PROVIDERS: ADMIT Hospitalist; ATTEND Hospitalist
PROC: 0D9670Z Drainage of Stomach with Drainage Device, Via Natural or Artificial Opening (ICD-10-PCS; principal; 2020-10-01)
DX: K56.50 Intestinal adhesions [bands], unspecified as to partial versus complete obstruction (principal); E11.9 Type 2 diabetes mellitus without complications; I10 Essential (primary) hypertension; E78.5 Hyperlipidemia, unspecified; M19.90 Unspecified osteoarthritis, unspecified site; Z90.81 Acquired absence of spleen; Z90.49 Acquired absence of other specified parts of digestive tract; Z83.3 Family history of diabetes mellitus; Z82.49 Family history of ischemic heart disease and other diseases of the circulatory system
CPT/HCPCS: 36415; 74018; 74177; 74250; 80048; 80053; 81001; 82948; 83605; 83690; 83735; 84484; 85025; 86900; 86901; 93005; C9113; G0378; J1885; J2270; J2405; J2543; J3475; J3480; J3490; J7030; J7042; Q9963; Q9967

== ENCOUNTER 2020-11-20 04:07 | Inpatient (IN) | payer OTHER ==
[~2020-11-20] VITALS: Ht 154.9 cm; Wt 89.9 kg
[2020-11-20] MEDS ORDERED: SODIUM CHLORIDE 0.9% 1000ML 1,000 ML IV ONE ×2 (04:39→09:39)
[2020-11-20] MEDS ORDERED: MORPHINE SULFATE 2 MG/ML 1ML SYG ONE (04:39)
[2020-11-20] MEDS ORDERED: ONDANSETRON HCL 4 MG/2 ML VIAL ONE ×2 (04:39→08:46)
[2020-11-20 05:02] LABS: CREATININE 0.5 mg/dL (0.5-1.5); POTASSIUM 4.8 mmol/L (3.5-5.1)
[2020-11-20 05:07] LABS: ALBUMIN 4.1 g/dL (3.5-5.0); BILIRUBIN,TOTAL 0.4 mg/dL (0.2-1.0); TOTAL PROTEIN, SERUM 8.3 g/dL (6.0-8.3)
[2020-11-20 05:15] LABS: BASOPHILS % (AUTO) 0.4 % (0.0-5.0); EOSINOPHILS % (AUTO) 0.4 % (0.0-8.0); LYMPHOCYTES % (AUTO) 12.2 % (21.0-51.0); MEAN CORPUSCULAR HEMOGLOBIN 28.8 pg (27.0-33.0); MEAN CORPUSCULAR HGB CONC 33.2 g/dL (32.0-36.0); MEAN CORPUSCULAR VOLUME 86.7 fL (79-99); MONOCYTES % (AUTO) 5.4 % (3.0-13.0); PLATELET COUNT (AUTO) 524 K/uL (130-400); RED BLOOD CELL COUNT(AUTO) 4.27 MIL/uL (4.00-5.50); RED CELL DISTRIBUTION WIDTH 14.4 % (11.0-15.5); WHITE BLOOD COUNT (AUTO) 16.3 K/uL (4.8-10.8)
[2020-11-20] MEDS ORDERED: IOHEXOL-350 75 ML VIAL IV ONE (06:04)
[2020-11-20 06:44] LABS: APPEARANCE,URINE CLEAR (CLEAR); BILIRUBIN,URINE NEGATIVE (NEGATIVE); COLOR,URINE YELLOW (YELLOW); GLUCOSE, URINE (UA) NEGATIVE (NEGATIVE); KETONES,URINE NEGATIVE (NEGATIVE); LEUKOCYTE ESTERASE ,URINE NEGATIVE (NEGATIVE); NITRATE,URINE NEGATIVE (NEGATIVE); OCCULT BLOOD,URINE NEGATIVE (NEGATIVE); PH,URINE 7.5 (5.0-8.0); PROTEIN,URINE NEGATIVE (NEGATIVE); UROBILINOGEN,URINE 0.2 mg/dL (0.2-1.0)
[2020-11-20] MEDS ORDERED: ACETAMINOPHEN 325 MG TAB PO PRN ×2 (09:15)
[2020-11-20] MEDS ORDERED: ONDANSETRON HCL 4 MG/2 ML VIAL IV PRN (09:15)
[2020-11-20] MEDS: SODIUM CHLORIDE 0.9% 1000ML 1,000 ML IV SCH ×2 (09:15→18:27)
[2020-11-20] MEDS: CEFTRIAXONE SODIUM 1 GM IV SCH (09:15)
[2020-11-20 09:33] LABS: HEMOGLOBIN A1C 7.7 % (4.0-6.0)
[2020-11-20] MEDS ORDERED: CEFTRIAXONE SODIUM 1 GM ONE (09:38)
[2020-11-20] MEDS ORDERED: SODIUM CHLORIDE 0.9% 100 ML IV ONE (09:38)
[2020-11-20] MEDS ORDERED: MORPHINE SULFATE 4 MG/1ML SYG ONE (10:33)
[2020-11-20] MEDS ORDERED: METRONIDAZOLE 500MG/100ML BAG 100 ML ONE (10:45)
[2020-11-20] MEDS ORDERED: METOCLOPRAMIDE 10 MG/2 ML VIAL ONE (10:49)
[2020-11-20] MEDS: INSULIN HUMULIN R 100 UNIT/ML 3ML SQ SCH ×3 (11:30→20:07)
[2020-11-20] MEDS: METRONIDAZOLE 500MG/100ML BAG 100 ML IVPB SCH ×2 (14:00→20:07)
[2020-11-20 16:35] VITALS: BP 144/73
[2020-11-20] MEDS: FAMOTIDINE/PF 20 MG/2 ML VIAL IV SCH (20:07)
[2020-11-20 20:16] VITALS: BP 127/63
[2020-11-20] MEDS ORDERED: MORPHINE SULFATE 2 MG/ML 1ML SYG IVP PRN (21:30)
[2020-11-20 23:58] VITALS: BP 112/57
[2020-11-21 04:10] VITALS: BP 137/75
[2020-11-21 04:21] LABS: ALBUMIN 2.8 g/dL (3.5-5.0); BILIRUBIN,TOTAL 0.4 mg/dL (0.2-1.0); CREATININE 0.6 mg/dL (0.5-1.5); POTASSIUM 3.4 mmol/L (3.5-5.1); TOTAL PROTEIN, SERUM 6.5 g/dL (6.0-8.3)
[2020-11-21] MEDS: SODIUM CHLORIDE 0.9% 1000ML 1,000 ML IV SCH (04:28)
[2020-11-21 04:43] LABS: BASOPHILS % (AUTO) 0.3 % (0.0-5.0); EOSINOPHILS % (AUTO) 1.4 % (0.0-8.0); LYMPHOCYTES % (AUTO) 26.9 % (21.0-51.0); MEAN CORPUSCULAR HEMOGLOBIN 29.1 pg (27.0-33.0); MEAN CORPUSCULAR HGB CONC 33.1 g/dL (32.0-36.0); MONOCYTES % (AUTO) 10.6 % (3.0-13.0); NEUTROPHILS % (AUTO) 60.5 % (40.0-77.0); PLATELET COUNT (AUTO) 488 K/uL (130-400); RED BLOOD CELL COUNT(AUTO) 4.09 MIL/uL (4.00-5.50); RED CELL DISTRIBUTION WIDTH 14.6 % (11.0-15.5); WHITE BLOOD COUNT (AUTO) 11.8 K/uL (4.8-10.8)
[2020-11-21] MEDS ORDERED: POTASSIUM CHLORIDE 20MEQ/100ML 100 ML IV PRN (04:45)
[2020-11-21] MEDS ORDERED: LIDOCAINE HCL-MPF 1% 2ML VIAL IJ PRN (04:45)
[2020-11-21] MEDS: METRONIDAZOLE 500MG/100ML BAG 100 ML IVPB SCH ×2 (04:58→14:19)
[2020-11-21] MEDS ORDERED: POTASSIUM CHLORIDE 20MEQ/100ML 100 ML IV ONE (05:20)
[2020-11-21] MEDS ORDERED: LIDOCAINE HCL-MPF 1% 2ML VIAL ONE (05:20)
[2020-11-21] MEDS: INSULIN HUMULIN R 100 UNIT/ML 3ML SQ SCH ×3 (05:47→16:22)
[2020-11-21 08:00] VITALS: BP 155/79
[2020-11-21] MEDS: CEFTRIAXONE SODIUM 1 GM IV SCH (10:16)
[2020-11-21] MEDS: FAMOTIDINE/PF 20 MG/2 ML VIAL IV SCH (10:16)
[2020-11-21 11:00] VITALS: BP 115/66
[2020-11-21] MEDS ORDERED: POTASSIUM CHLORIDE 20 MEQ ERTAB PO ONE (17:26)
[2020-11-21] MEDS ORDERED: FAMO20TA8 PO (17:35)
== END 2020-11-21 18:15 | disposition home or self-care (01) | DRG 395 ==
LOC: EDH 04:07 → EDHIP 09:10 → 3CH 15:10
PROVIDERS: ADMIT Hospitalist; ATTEND Hospitalist
DX: K43.6 Other and unspecified ventral hernia with obstruction, without gangrene (principal); E11.9 Type 2 diabetes mellitus without complications; M19.90 Unspecified osteoarthritis, unspecified site; E78.5 Hyperlipidemia, unspecified; Z90.81 Acquired absence of spleen; Z90.49 Acquired absence of other specified parts of digestive tract; Z83.3 Family history of diabetes mellitus
CPT/HCPCS: 36415; 74018; 74177; 80053; 81003; 82948; 83036; 83735; 85025; 87040; 87077; 87186; G0378; J0696; J2270; J2405; J2765; J3480; J3490; J7030; Q9967

== ENCOUNTER 2021-08-14 20:54 | Inpatient (IN) | payer OTHER ==
[~2021-08-14] VITALS: Ht 160 cm; Wt 99.8 kg
[2021-08-14] MEDS: ZOSYN 3.375GM+NS 50ML 50 ML IV SCH (00:45)
[~2021-08-14 20:54] MED LIST changes: +FAMO20TA8 PO; +LISI10TA24 PO; -LISI10TA7 PO; -NAPR-1023 PO
[2021-08-14] MEDS ORDERED: LORAZEPAM 2 MG/ML 1 ML VIAL IVP ONE (21:30)
[2021-08-14] MEDS ORDERED: LIDOCAINE HCL 2% VISCOUS 15 ML UDCUP PO ONE (21:30)
[2021-08-14] MEDS ORDERED: MAG/ALUM/SIMETH 30 ML UDCUP PO ONE (21:30)
[2021-08-14] MEDS ORDERED: FAMOTIDINE 20MG VIAL IV ONE ×2 (21:30→22:12)
[2021-08-14 21:39] VITALS: BP 184/78
[2021-08-14 21:42] LABS: BASOPHILS % (AUTO) 0.4 % (0.0-5.0); EOSINOPHILS % (AUTO) 0.5 % (0.0-8.0); HEMATOCRIT 41.9 % (36-48); LYMPHOCYTES % (AUTO) 14.2 % (21.0-51.0); MEAN CORPUSCULAR HEMOGLOBIN 29.6 pg (27.0-33.0); MEAN CORPUSCULAR HGB CONC 33.9 g/dL (32.0-36.0); MEAN CORPUSCULAR VOLUME 87.5 fL (79-99); MONOCYTES % (AUTO) 5.5 % (3.0-13.0); NEUTROPHILS % (AUTO) 78.9 % (40.0-77.0); PLATELET COUNT (AUTO) 377 K/uL (130-400); RED BLOOD CELL COUNT(AUTO) 4.79 MIL/uL (4.00-5.50); RED CELL DISTRIBUTION WIDTH 15.8 % (11.0-15.5); WHITE BLOOD COUNT (AUTO) 21.8 K/uL (4.8-10.8)
[2021-08-14 22:01] LABS: CREATININE 0.7 mg/dL (0.5-1.5); POTASSIUM 3.9 mmol/L (3.5-5.1)
[2021-08-14 22:06] LABS: ALBUMIN 4.1 g/dL (3.5-5.0); BILIRUBIN,TOTAL 0.4 mg/dL (0.2-1.0); TOTAL PROTEIN, SERUM 9.3 g/dL (6.0-8.3)
[2021-08-14] MEDS ORDERED: MAG/ALUM/SIMETH 30 ML UDCUP ONE (22:11)
[2021-08-14] MEDS ORDERED: LORAZEPAM 2 MG/ML 1 ML VIAL ONE (22:11)
[2021-08-14] MEDS ORDERED: LIDOCAINE HCL 2% VISCOUS 15 ML UDCUP ONE (22:11)
[2021-08-14 22:26] LABS: BILIRUBIN,URINE Negative (NEGATIVE); COLOR,URINE Yellow (YELLOW); GLUCOSE, URINE (UA) TRACE mg/dL (NEGATIVE); KETONES,URINE Negative (NEGATIVE); LEUKOCYTE ESTERASE ,URINE Small (NEGATIVE); NITRATE,URINE Negative (NEGATIVE); OCCULT BLOOD,URINE Nonhemolyzed Trace (NEGATIVE); PROTEIN,URINE POS 1+ mg/dL (NEGATIVE)
[2021-08-14 22:27] LABS: APPEARANCE,URINE HAZY (CLEAR)
[2021-08-14 22:36] LABS: AMORPHOUS SEDIMENT,UR Few /LPF (None Seen); BACTERIA,URINE Few /HPF (None Seen); MUCUS,URINE Few LPF (None Seen)
[2021-08-14] MEDS ORDERED: HYDRALAZINE 20MG/ML VIAL IV PRN (23:00)
[2021-08-14] MEDS ORDERED: LACTATED RINGERS 1000ML 1,000 ML IV SCH (23:00)
[2021-08-14] MEDS ORDERED: MORPHINE 4 MG SYG IV PRN (23:00)
[2021-08-14] MEDS ORDERED: ONDANSETRON 4MG INJ IVP PRN (23:00)
[2021-08-14 23:29] LABS: INR 1.01 (0.85-1.15)
[2021-08-14 23:30] LABS: PARTIAL THROMBOPLASTIN TIME 30.1 SEC (26.3-35.5)
[2021-08-15] VITALS (10 sets, daily range): BP systolic 108–139; BP diastolic 51–75
[2021-08-15] MEDS: LACTATED RINGERS 1000ML 1,000 ML IV SCH ×3 (00:36→20:10)
[2021-08-15] MEDS ORDERED: ASPI-1012 PO (02:22)
[2021-08-15] MEDS ORDERED: LISI10TA24 PO (02:22)
[2021-08-15] MEDS ORDERED: ROSU40TA21 PO (02:22)
[2021-08-15] MEDS ORDERED: CANA300T PO (02:22)
[2021-08-15] MEDS ORDERED: SITA100T12 PO (02:22)
[2021-08-15] MEDS ORDERED: ERGO500093 PO (02:22)
[2021-08-15] MEDS ORDERED: PIOG45TA64 PO (02:22)
[2021-08-15 07:02] LABS: BASOPHILS % (AUTO) 0.4 % (0.0-5.0); EOSINOPHILS % (AUTO) 0.9 % (0.0-8.0); HEMATOCRIT 38.4 % (36-48); LYMPHOCYTES % (AUTO) 24.7 % (21.0-51.0); MEAN CORPUSCULAR HEMOGLOBIN 29.2 pg (27.0-33.0); MEAN CORPUSCULAR HGB CONC 33.3 g/dL (32.0-36.0); MEAN CORPUSCULAR VOLUME 87.7 fL (79-99); MONOCYTES % (AUTO) 10.3 % (3.0-13.0); NEUTROPHILS % (AUTO) 63.4 % (40.0-77.0); PLATELET COUNT (AUTO) 342 K/uL (130-400); RED BLOOD CELL COUNT(AUTO) 4.38 MIL/uL (4.00-5.50); RED CELL DISTRIBUTION WIDTH 15.7 % (11.0-15.5); WHITE BLOOD COUNT (AUTO) 14.5 K/uL (4.8-10.8)
[2021-08-15 07:10] LABS: HEMOGLOBIN A1C 7.1 % (4.0-6.0)
[2021-08-15] MEDS: ZOSYN 3.375GM+NS 50ML 50 ML IV SCH ×3 (07:18→23:22)
[2021-08-15 07:39] LABS: CREATININE 0.6 mg/dL (0.5-1.5); MAGNESIUM 1.8 mg/dL (1.80-2.40); PHOSPHORUS 3.5 mg/dL (2.5-4.9)
[2021-08-15 07:44] LABS: POTASSIUM 3.7 mmol/L (3.5-5.1)
[2021-08-15] MEDS: FAMOTIDINE 20MG VIAL IV SCH ×2 (10:22→20:12)
[2021-08-15] MEDS: MORPHINE 2 MG SYG IVP PRN (10:22)
[2021-08-16] MEDS: MORPHINE 2 MG SYG IVP PRN (03:35)
[2021-08-16] MEDS: LACTATED RINGERS 1000ML 1,000 ML IV SCH (05:01)
[2021-08-16 06:01] LABS: BASOPHILS % (AUTO) 0.6 % (0.0-5.0); LYMPHOCYTES % (AUTO) 33.4 % (21.0-51.0); MEAN CORPUSCULAR HEMOGLOBIN 29.3 pg (27.0-33.0); MEAN CORPUSCULAR HGB CONC 33.4 g/dL (32.0-36.0); MEAN CORPUSCULAR VOLUME 87.6 fL (79-99); MONOCYTES % (AUTO) 9.5 % (3.0-13.0); NEUTROPHILS % (AUTO) 53.1 % (40.0-77.0); PLATELET COUNT (AUTO) 370 K/uL (130-400); RED BLOOD CELL COUNT(AUTO) 4.34 MIL/uL (4.00-5.50); RED CELL DISTRIBUTION WIDTH 15.9 % (11.0-15.5); WHITE BLOOD COUNT (AUTO) 10.4 K/uL (4.8-10.8)
[2021-08-16 06:15] LABS: BILIRUBIN,TOTAL 0.5 mg/dL (0.2-1.0); CREATININE 0.8 mg/dL (0.5-1.5); MAGNESIUM 1.8 mg/dL (1.80-2.40); POTASSIUM 4.1 mmol/L (3.5-5.1); TOTAL PROTEIN, SERUM 7.4 g/dL (6.0-8.3)
[2021-08-16] MEDS: ZOSYN 3.375GM+NS 50ML 50 ML IV SCH (06:32)
[2021-08-16 08:00] VITALS: BP 118/59
[2021-08-16] MEDS: FAMOTIDINE 20MG VIAL IV SCH (08:51)
[2021-08-16 12:00] VITALS: BP 121/66
[2021-08-16 16:00] VITALS: BP 124/66
== END 2021-08-16 16:45 | disposition home or self-care (01) | DRG 395 ==
LOC: EDH 20:54 → EDHIP 20:55 → 3BH 08-15 09:20
PROVIDERS: ADMIT Hospitalist; ATTEND Hospitalist
PROC: 0D9670Z Drainage of Stomach with Drainage Device, Via Natural or Artificial Opening (ICD-10-PCS; principal; 2021-08-14)
DX: K43.6 Other and unspecified ventral hernia with obstruction, without gangrene (principal); E11.65 Type 2 diabetes mellitus with hyperglycemia; D72.829 Elevated white blood cell count, unspecified; E66.01 Morbid (severe) obesity due to excess calories; Z68.39 Body mass index [BMI] 39.0-39.9, adult; E78.00 Pure hypercholesterolemia, unspecified; E78.5 Hyperlipidemia, unspecified; I10 Essential (primary) hypertension; M19.90 Unspecified osteoarthritis, unspecified site; Z20.822 Contact with and (suspected) exposure to COVID-19; Z82.49 Family history of ischemic heart disease and other diseases of the circulatory system; Z83.3 Family history of diabetes mellitus; Z86.11 Personal history of tuberculosis; Z90.81 Acquired absence of spleen; Z79.84 Long term (current) use of oral hypoglycemic drugs
CPT/HCPCS: 36415; 71045; 74176; 80048; 80053; 81001; 81025; 82948; 83036; 83605; 83690; 83735; 84100; 84145; 84484; 85025; 85610; 85730; 86850; 86900; 86901; 87040; 87077; 87088; 87186; 87635; 93005; G0378; J2060; J2543; J3490; J7120